=== PATIENT | female | born 1935 | race Caucasian/White ===

== ENCOUNTER 2016-10-14 15:46 | Emergency (ER) | payer OTHER ==
[~2016-10-14] VITALS: Ht 162.6 cm; Wt 64.5 kg
[~2016-10-14 15:46] MED LIST: IRON325 MG PO; PANTOPRAZOLE SO40 MG PO
[2016-10-14 17:58] LABS: HEMATOCRIT 38.5 % (36.0-46.0); MCH 29.8 PG (29.0-34.0); MCHC 33.2 G/DL (30.0-36.0); MCV 89.5 FL (83-99); MEAN PLAT.VOLUME 10.2 uM^3 (9.5-12.4); PLATELET COUNT 146 K/uL (156-360); RBC DIS.WIDTH-CV 11.9 % (11.8-14.6); RBC DIS.WIDTH-SD 38.8 % (39-53); WHITE BLOOD COUNT 4.9 K/uL (4.1-10.2)
[2016-10-14 18:12] LABS: CHLORIDE 108 mEq/L (99-109); SODIUM 142 mEq/L (136-147)
[2016-10-14 18:13] LABS: GLUCOSE 87 mg/dL (70-99)
[2016-10-14 18:15] LABS: ANION GAP 10 MEQ/L (2-14)
[2016-10-14 18:16] LABS: ADD MIUA? NO; BILIRUBIN NEGATIVE; BLOOD NEGATIVE; COLOR YELLOW ((YELLOW)); GLUCOSE (STRIP) NEGATIVE; KETONES NEGATIVE; LEUKOCYTES NEGATIVE; NITRITE NEGATIVE; PROTEIN (STRIP) NEGATIVE; SPECIFIC GRAVITY 1.009 (1.000-1.030); UCUL ADDED? NO; UROBILINOGEN 0.2 MG/DL (0.2-1.0)
[2016-10-14 18:17] LABS: GFR ESTIMATE (CALCULATED) > 59 mL/min/
[2016-10-14 18:18] LABS: UREA NITROGEN (BUN) 11 mg/dL (9-23)
[2016-10-14] MEDS ORDERED: ONE-A-DAY ESSE1 EAC1 PO (21:00)
[2016-10-14] MEDS ORDERED: PROTONIX40 MG PO (21:00)
[2016-10-14] MEDS ORDERED: IRON325 M1 PO (21:00)
[2016-10-14 21:45] VITALS: BP 158/83
== END 2016-10-14 22:00 | disposition home or self-care (01) ==
LOC: EME 15:46
PROVIDERS: Physician Assistant
DX: R33.9 Retention of urine, unspecified (principal); M48.56XA Collapsed vertebra, not elsewhere classified, lumbar region, initial encounter for fracture; F32.9 Major depressive disorder, single episode, unspecified
CPT/HCPCS: 72148; 80048; 81003; 85027; 99281; 99284

== ENCOUNTER 2017-11-15 12:23 | Emergency (ER) | payer OTHER ==
[~2017-11-15] VITALS: Ht 160 cm; Wt 61.3 kg
[~2017-11-15 12:23] MED LIST changes: +IRON325 M1 PO; +ONE-A-DAY ESSE1 EAC1 PO; +PROTONIX40 MG PO
[2017-11-15 13:16] LABS: HEMATOCRIT 36.4 % (36.0-46.0); HEMOGLOBIN 12.1 G/DL (11.9-15.5); MCH 29.1 PG (29.0-34.0); MCHC 33.2 G/DL (30.0-36.0); MCV 87.5 FL (83-99); PLATELET COUNT 165 K/uL (156-360); RBC DIS.WIDTH-CV 13.9 % (11.8-14.6); RBC DIS.WIDTH-SD 44.3 % (39-53); RED BLOOD COUNT 4.16 M/uL (3.80-5.20); WHITE BLOOD COUNT 4.8 K/uL (4.1-10.2)
[2017-11-15 13:25] LABS: CHLORIDE 108 mEq/L (99-109); POTASSIUM 4.1 mEq/L (3.7-5.4); SODIUM 140 mEq/L (136-147)
[2017-11-15 13:27] LABS: GLUCOSE 95 mg/dL (70-99)
[2017-11-15 13:31] LABS: CREATININE 0.7 mg/dL (0.6-1.3); GFR ESTIMATE (CALCULATED) > 59 mL/min/
[2017-11-15 13:32] LABS: UREA NITROGEN (BUN) 12 mg/dL (9-23)
[2017-11-15 15:08] VITALS: BP 174/86
== END 2017-11-15 15:09 | disposition home or self-care (01) ==
LOC: EME 12:23
DX: M54.12 Radiculopathy, cervical region (principal); F32.9 Major depressive disorder, single episode, unspecified; F41.9 Anxiety disorder, unspecified; Z88.6 Allergy status to analgesic agent
CPT/HCPCS: 80048; 81003; 85027; 86850; 86900; 86901; 99281; 99283